=== PATIENT | male | born 1985 | race Caucasian/White ===

== ENCOUNTER 2019-08-25 18:20 | Emergency (ER) | payer OTHER ==
[~2019-08-25] VITALS: Ht 182.9 cm; Wt 97.5 kg
[2019-08-25 19:01] LABS: ABSOLUTE LYMPHOCYTES 1.4 thou/uL (0.8-5.3); ABSOLUTE MONOCYTES 0.7 thou/uL (0.0-1.2); ABSOLUTE NEUTROPHILS 11.1 thou/uL (1.6-8.1); BASOPHILS 0.2 %; EOSINOPHILS 0.1 %; HEMATOCRIT 44.6 % (42.0-52.0); HEMOGLOBIN 15.5 gm/dL (14.0-18.0); LYMPHOCYTES 10.7 %; MCHC 34.7 g/dL (28.0-37.0); MCV 89.3 fL (80.0-100.0); MONOCYTES 5.2 %; MPV 8.7 fl. (7.2-11.1); NUCLEATED RBCS 0 /100WBC; PLATELET COUNT* 290 thou/uL (150-400); POLYS 83.8 %; RBC 4.99 mil/uL (4.50-6.00); RDW-CV 12.9 % (10.5-14.5); WBC 13.2 thou/uL (4.0-11.0)
[2019-08-25 19:10] LABS: CALCIUM 8.5 mg/dL (8.5-10.1); CREATININE 1.6 mg/dL (0.6-1.3); POTASSIUM 3.9 mmol/L (3.5-5.1)
[2019-08-25 19:26] LABS: TOTAL BILIRUBIN 0.3 mg/dL (<0.1-1.0); TOTAL PROTEIN 7.6 g/dL (6.4-8.2)
[2019-08-25 20:23] LABS: URINE BILIRUBIN NEGATIVE (Negative); URINE BLOOD 3+ (Negative); URINE CLARITY CLOUDY; URINE COLOR RED; URINE GLUCOSE-RANDOM NEGATIVE (Negative); URINE KETONES TRACE (Negative); URINE LEUKOCYTES-REFLEX NEGATIVE (Negative); URINE NITRITE-REFLEX NEGATIVE (Negative); URINE PROTEIN 3+ (Negative); URINE SPECIFIC GRAVITY >= 1.030 (1.005-1.030); URINE UROBILINOGEN 0.2 E.U./dl (0.2-1.0)
[2019-08-25 20:26] LABS: CASTS None Seen /LPF (None Seen); SQUAMOUS 0-3 Few /LPF (0-3); URINE RBC >20 Many /HPF (0-2)
[2019-08-25 20:29] LABS: CRYSTALS None Seen /LPF (None Seen); URINE WBC-REFLEX 0-5 Rare /HPF (0-5)
[2019-08-25] MEDS ORDERED: NORCO 5-325 TA1 EAC2 PO (20:36)
[2019-08-25] MEDS ORDERED: FLOMAX0.4 MG PO (20:36)
[2019-08-25] MEDS ORDERED: ONDANSETRON HCL4 M2 PO (20:36)
[2019-08-25 21:11] VITALS: BP 125/70
== END 2019-08-25 21:12 | disposition home or self-care (01) ==
LOC: M.ERS 18:20
PROVIDERS: Nurse Practitioner Family
DX: N20.1 Calculus of ureter (principal); R11.2 Nausea with vomiting, unspecified